=== PATIENT | male | born 1955 | race Caucasian/White ===

== ENCOUNTER → 2017-11-11 | Outpatient (CLI) | payer OTHER ==
[~2017-11-11] MED LIST: ASCO-182 PO; ASPI-1471 PO; BENA1TAB59 PO; CARB-71 PO; ECHI80CA2 PO; PRAM0.1225 PO; PROP60CA22 PO; PROP60CA28 PO; SIMV-42 PO; SIMV-49 PO; TOLT4CAP13 PO
[2017-11-11 12:27] LABS: PLATELET COUNT, AUTOMATED 183 K/uL (150-450)
== END ==
LOC: LAB 12:15
PROVIDERS: ATTEND Family Medicine
DX: G20 Parkinson's disease (principal); I10 Essential (primary) hypertension
CPT/HCPCS: 36415; 82040; 82247; 82306; 82310; 82374; 82435; 82565; 82607; 82947; 84075; 84132; 84155; 84295; 84443; 84450; 84460; 84520; 85025

== ENCOUNTER 2017-12-02 08:15 | Outpatient (RCR) | payer OTHER ==
--- NOTE | 2017-11-09 13:36 | PT INITIAL EVALUATION ---
MEDICAL DIAGNOSIS: G20 Parkinson's disease TREATMENT DIAGNOSIS: Same, altered gait and balance DATE OF ONSET: 11/06/15 SUBJECTIVE: Tommy Ash (Art) returns to PT for a [facility] physical therapy tune up. He was diagnosed with Parkinson's disease (PD) 11/06/15 and has done two rounds of [facility] for re-calibration of movement. 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 He notices he shuffles at home when he isn't focused on walking normally, has trouble getting his feet from the ground into the turkey picker or over his J[employer] motorcycle seat. He will be busy this month, and can attend PT here 2-3x/week. Pain location is R shoulder, neck, lumbar and described as tightness, sore. Pain scale is 2/10 worse with lifting, carrying 40 lbs. and better with rest. REHAB PROBLEM LIST: Increased Pain Decreased ROM Decreased Strength Decreased Endurance PREVIOUS MEDICAL HISTORY: Prostate cancer, 2 lumbar discectomies, in the late . R calf weakness in the last few years (had this in the ) affecting gait and heel raise. OCCUPATION: Disabled. Eldon relates he's fatigued and stiff by the late afternoon now. He [facility] [employer] [facility] per week and does aerobics and weight training at [employer] [place] 5 times per week. OBJECTIVE: Posture: Upright trunk and head, hips ~15 deg. flexion, heels 6" apart. ROM: Cervical AROM flexion WNL, lower cervical extension minimal, mid and upper cervical extension 75%. Thoracic flexion 50%, extension full. Strength: R calf 3-/5, L 5/5, rotator cuffs 5/5, middle trap 5-/5 L and 4/5 R. Palpation: No resting tremor. Special Tests: Negative SLR, B, with hamstring tightness 45 deg. L and 50 deg. R. Right shoulder joint hypomobility (capsular tightness) is present. Negative R shoulder drawers, crank test. Mobility: Community Balance and Mobility 68/96, a 29% impairment. Eldon has difficulty arising from a low surface, after sitting for awhile. he's slow raising his foot to his knee while seated to [place] his sneaker. He raises his R foot to mid-thigh to mimic swinging his leg over a motorcycle seat. Gait: Shuffling gait when distracted, turns slowly with balance control. Descends stairs independently with mild stiffness in the LE's. Balance: Single leg stand L 45 seconds, R 14 seconds. Tandem stand steady L and R. Eldon was unable to do a sudden stop after jogging 8 meters, demonstrating stepping strategy to self-recover his balance. Eldon has mild balance disturbances when distracted or talking. ASSESSMENT: Tommy Ash presents with mild gait and balance changes since he did his last tune up here in February,, R shoulder mild adhesive capsulitis, tight, short muscles. He's an excellent candidate to work re-calibration, shaping and cognitive integration with movement to improve his transfers, walking on uneven ground and dressing more quickly. Short Term Goals Transfers in/out of turkey picker and with motorcycle smoothly, donns shoes quickly and transfers from low chairs smoothly, walk inside home with normal gait and not fatigued until night time at home. Patient's Goals Walk on uneven ground when distracted with normal balance control, be more limber for transfers. PLAN: Patient to be seen for LSVT BIG Neuromuscular Re-ed, Gait Trg/Balance Trg , Home Exercise Program 2-3x/week for 4 Weeks Thank you for this referral. If you have any questions, comments, or concerns about this report or plan, please contact me at . KATHYD
--- NOTE | 2017-11-29 15:53 | PT PLAN OF CARE ---
Physician: Dr. Vilma Redd Patient is being seen: 4x/week Therapist: More Dobbs PT Medical Diagnosis: G20 Parkinson's disease Treatment Diagnosis: Same, altered gait and balance Date of Onset: 11/06/15 Date of Initial Evaluation: 11/09/17 Date patient was last seen: 11/25/17 Number of treatments: 10 Number of cancellations/No shows: 0 INTERVENTIONS: Neuromuscular Re-ed Gait Trg/Balance Trg Home Exercise Program GOALS: All progressing: Transfers in/out of merchandise pickup/receiving associate and with motorcycle smoothly, donns shoes quickly and transfers from low chairs smoothly, walk inside home with normal gait and not fatigued until night time at home. PATIENT'S GOAL: Walk on uneven ground when distracted with normal balance control, be more limber for transfers. both progressing Patient Compliance: Excellent Prognosis: Excellent Reasons for continuing therapy: S: Art relates he's moving more smoothly, in better with transfers. O: Posture: Upright trunk and head, hips ~15 deg. flexion, heels 6" apart. Strength: Sit to stand from low surface smoothly. Gait: Art ambulates with improved arm swing, longer step length and turns more quickly. He swings his R foot thigh high now to mimic swinging his leg over a motorcycle seat. Mobility: Community Balance and Mobility improved from 68 to 81/96, a 16% impairment. he's slow raising his foot to his knee while seated to [place] his sneaker. A/P: Tommy Nilsa is improving mobility, gait, movement with a LSVT BIG tune up. If you agree, we'll continue 2-3x/week to finish the 4 weeks. Thank you. LAYA
[~2017-12-02 08:15] MED LIST changes: +BENA5TAB32 PO
--- NOTE | 2017-12-03 13:06 | PT PLAN OF CARE ---
Physician: Dr. Vilma Redd Patient is being seen: 2-3x/week Therapist: More mathew PT Medical Diagnosis: G20 Parkinson's disease Treatment Diagnosis: Same, altered gait and balance Date of Onset: 11/06/15 Date of Initial Evaluation: 11/09/17 Date patient was last seen: 12/02/17 Number of treatments: 13 Number of cancellations/No shows: 0 INTERVENTIONS: LSVT BIG Neuromuscular Re-ed Gait Trg/Balance Trg Home Exercise Program GOALS: Transfers in/out of sweet pickle maker and with motorcycle smoothly (met), donns shoes quickly (partially met) and transfers from low chairs smoothly (met), walk inside home with normal gait (not met) and not fatigued until night time at home (partially met). PATIENT'S GOAL: Walk on uneven ground when distracted with normal balance control (met), be more limber for transfers (met). Patient Compliance: Excellent Prognosis: Excellent Reasons for discontinuing therapy: S: Eldon's completed his four weeks of LSVT BIG and reports transfers, walking on uneven ground is normal, while energy, walking in his home (tight spaces) is improved. O: Community Balance and Mobility impairment improved to 16%. Eldon ambulates over rocks with normal clearance and stride but in level surfaces, has R foot drag and reduced R arm swing, even when cued. He arises from the ground normally. A/P: Tommy Ash has improved mobility, uneven ground gait and some endurance with his LSVT BIG tune-up. I'll DC PT to [facility] with the recommendation that Art return in about 6 months for another tune-up. Thank you. LAYA
== END 2017-12-02 18:00 | disposition home or self-care (01) ==
LOC: PT 08:15
PROVIDERS: ATTEND Family Medicine
DX: G20 Parkinson's disease (principal); M25.511 Pain in right shoulder; M54.5 Low back pain; M54.2 Cervicalgia; R26.89 Other abnormalities of gait and mobility; R53.83 Other fatigue; Z85.46 Personal history of malignant neoplasm of prostate
CPT/HCPCS: 97162

== ENCOUNTER → 2017-12-21 | Outpatient (CLI) | payer OTHER ==
[~2017-12-21] MED LIST changes: -BENA5TAB32 PO; +BENA5TAB33 PO
== END ==
LOC: LAB 10:01
PROVIDERS: ATTEND Surgery
DX: L57.0 Actinic keratosis (principal)
CPT/HCPCS: 88305

== ENCOUNTER → 2018-04-21 | Outpatient (CLI) | payer OTHER | LOC: LAB 14:45 | PROVIDERS: ATTEND Urology | DX: C61 Malignant neoplasm of prostate (principal) | CPT/HCPCS: 36415; 84153 ==

== ENCOUNTER → 2018-11-03 | Outpatient (CLI) | payer OTHER ==
[~2018-11-03] MED LIST changes: +ACET-2146 PO; +CHOL10005 PO; +DICL100G39 TOP; +HYDR-2966 PO; +PNEI IJ
[2018-11-03 10:55] LABS: PLATELET COUNT, AUTOMATED 186 K/uL (150-450)
== END ==
LOC: LAB 10:32
PROVIDERS: ATTEND Family Medicine
DX: G20 Parkinson's disease (principal); I10 Essential (primary) hypertension
CPT/HCPCS: 36415; 82040; 82247; 82306; 82310; 82374; 82435; 82565; 82607; 82947; 84075; 84132; 84155; 84295; 84450; 84460; 84520; 85025

== ENCOUNTER → 2019-01-19 | Outpatient (CLI) | payer OTHER ==
--- NOTE | 2019-01-19 12:08 | EKG ---
FAC[place] [facility] [place]IENT NAME: KALI GRAVES : [id number] MR: [id number] V: [id number] EXAM DATE: ORDERING PHYSICIAN: NO OTHER TECHNOLOGIST: ANNE MARIE Test Reason : PRE OP Blood Pressure : / mmHG Vent. Rate : 069 BPM Atrial Rate : 069 BPM P-R Int : 150 ms QRS Dur : 104 ms QT Int : 416 ms P-R-T Axes : 056 040 -04 degrees QTc Int : 445 ms Normal sinus rhythm T inversion/flattening consistent with inferior ischemia vs normal variant No previous ECGs available Confirmed by ANDERS VILLATORO ([id number]) on 01/19/2019 7:13:45 PM Referred By: LISA Confirmed By:ANDERS VILLATORO
== END ==
LOC: LAB 11:26
PROVIDERS: ATTEND Surgery
DX: Z01.818 Encounter for other preprocedural examination (principal); I83.12 Varicose veins of left lower extremity with inflammation; R23.3 Spontaneous ecchymoses
CPT/HCPCS: 36415; 82310; 82374; 82435; 82565; 82947; 84132; 84295; 84520; 85014; 85018; 93005